=== PATIENT | male | born 1980 | race Caucasian/White ===

== ENCOUNTER 2019-10-31 19:09 | Emergency (ER) | payer MEDICAID ==
[~2019-10-31] VITALS: Ht 182.9 cm; Wt 90.0 kg
[2019-10-31 19:12] VITALS: BP 116/73
[2019-10-31] MEDS ORDERED: SODIUM CHLORIDE 0.9% 1,000 ML IV ONE (21:49)
== END 2019-11-01 00:20 | disposition home or self-care (01) ==
LOC: ER 19:09
DX: R53.1 Weakness (principal)
CPT/HCPCS: 96360; 99283; J7030